=== PATIENT | female | born 1980 | race Caucasian/White ===

== ENCOUNTER 2018-03-13 06:25 | Emergency (ER) | payer BC ==
[~2018-03-13] VITALS: Ht 180.3 cm; Wt 85.0 kg
--- NOTE | 2018-03-13 06:37 | PD ---
HPI Chief Complaint: Left ankle pain Time Seen by Provider: 06:36 Travel History International Travel<30 days: No Contact w/Intl Traveler<30days: No Traveled to known affect area: No History of Present Illness HPI 37-year-old female presents via EMS for evaluation of left ankle injury. Prior to arrival the patient reports that [place] the [place] when she twisted her left ankle and fell. She now has left ankle and foot pain, throbbing, constant, worse when attempting to ambulate. Associated bruising soft tissue swelling. Denies any numbness or tingling. She has no other complaints at this time. [facility] Social History Alcohol Use: Yes Tobacco Use: No Substance Use: No Allergies-Medications (Allergen,Severity, Reaction): Coded Allergies: No Known Allergies (Unverified , 03/13/18) Reported Meds & Prescriptions Reported Meds & Active Scripts Active Hydrocodone-Acetaminophen 5-325 mg Tab 1 Tab PO Q6H PRN Review of Systems Except as stated in HPI: all other systems reviewed are Neg Physical Exam Narrative GENERAL: Well-developed well-nourished female no acute distress SKIN: Warm and dry. There is ecchymosis along the medial lateral aspect of left ankle and the dorsum of the left foot. HEAD: Atraumatic. Normocephalic. EYES: Pupils equal and round. No scleral icterus. No injection or drainage. ENT: No nasal bleeding or discharge. Mucous membranes pink and moist. NECK: Trachea midline. No JVD. CARDIOVASCULAR: Regular rate and rhythm. No murmur appreciated. RESPIRATORY: No accessory muscle use. Clear to auscultation. Breath sounds equal bilaterally. MUSCULOSKELETAL: Skin as noted above with associated tenderness to palpation the left ankle and foot. There is pain with dorsi and plantar flexion of left ankle. 2+ dorsalis pedis pulse. NEUROLOGICAL: Awake and alert. No obvious cranial nerve deficits. Motor grossly within normal limits. Normal speech. Data Data Last Documented VS Vital Signs Date Time Temp Pulse Resp B/P (MAP) Pulse Ox O2 Delivery O2 Flow Rate FiO2 03/13/18 09:02 108/68 (81) 03/13/18 07:10 97.7 94 16 Orders Orders Ankle, Complete ([id number]) (03/13/18 ) Foot, Complete ([id number]) (03/13/18 ) Knee, Complete (4vws) (03/13/18 ) Morphine Inj (Morphine Inj) (03/13/18 06:45) Ondansetron Odt (Zofran Odt) (03/13/18 06:45) Basic Metabolic Panel (Bmp) (03/13/18 07:47) Complete Blood Count With Diff (03/13/18 07:47) Ecg Monitoring (03/13/18 07:47) Sodium Chlor 0.9% 1000 Ml Inj (Ns 1000 M (03/13/18 07:47) Sodium Chloride 0.9% Flush (Ns Flush) (03/13/18 08:00) Chest, Single Ap (03/13/18 07:47) Splinting (03/13/18 ) Radiology Film Requests (03/13/18 ) Crutches (03/13/18 ) Ed Discharge Order (03/13/18 08:42) Oxycodone-Acetamin 10-325 Mg (Percocet 1 (03/13/18 09:00) Fiberglass Short Leg Splint Ad (03/13/18 ) Fiberglass Sugartong Sp Ad Sl (03/13/18 ) Labs Laboratory Tests Test 03/13/18 08:00 White Blood Count 5.1 TH/MM3 Red Blood Count 4.39 MIL/MM3 Hemoglobin 12.6 GM/DL Hematocrit 37.2 % Mean Corpuscular Volume 84.7 FL Mean Corpuscular Hemoglobin 28.7 PG Mean Corpuscular Hemoglobin Concent 33.9 % Red Cell Distribution Width 14.3 % Platelet Count 271 TH/MM3 Mean Platelet Volume 7.5 FL Neutrophils (%) (Auto) 70.5 % Lymphocytes (%) (Auto) 23.8 % Monocytes (%) (Auto) 5.2 % Eosinophils (%) (Auto) 0.2 % Basophils (%) (Auto) 0.3 % Neutrophils # (Auto) 3.6 TH/MM3 Lymphocytes # (Auto) 1.2 TH/MM3 Monocytes # (Auto) 0.3 TH/MM3 Eosinophils # (Auto) 0.0 TH/MM3 Basophils # (Auto) 0.0 TH/MM3 CBC Comment DIFF FINAL Differential Comment Blood Urea Nitrogen 7 MG/DL Creatinine 0.70 MG/DL Random Glucose 90 MG/DL Calcium Level 8.4 MG/DL Sodium Level 142 MEQ/L Potassium Level 4.0 MEQ/L Chloride Level 109 MEQ/L Carbon Dioxide Level 19.3 MEQ/L Anion Gap 14 MEQ/L Estimat Glomerular Filtration Rate 95 ML/MIN MDM Medical Decision Making Medical Screen Exam Complete: Yes Emergency Medical Condition: Yes Medical Record Reviewed: Yes Differential Diagnosis Ankle sprain, avulsion fracture, dislocation, contusion Narrative Course X-ray imaging of left ankle, foot and knee have been ordered. The patient be given morphine and Zofran. 0700: At the end of my shift the patient was signed out to the oncoming provider pending imaging results. Scripts Hydrocodone-Acetaminophen (Hydrocodone-Acetaminophen) 5-325 mg Tab 1 TAB PO Q6H Y for PAIN, #20 TAB 0 Refills Prov: Jaya Shah MD 03/13/18 Marcelo Ricci Mar 13, 2018 06:37
[2018-03-13] MEDS ORDERED: MORPHINE SULFATE 4 MG/ML INJ IV PUSH ONE (06:45)
[2018-03-13] MEDS ORDERED: ONDANSETRON ODT 4 MG TAB PO ONE (06:45)
[2018-03-13 07:10] VITALS: BP 109/63; PULSE 94; RESP 16; TEMP 97.7
--- NOTE | 2018-03-13 07:34 | RADRPT ---
EXAM DATE: 03/13/2018 7:02 AM EDT AGE/SEX: 37 years / Female INDICATIONS: [place] beach. CLINICAL DATA: This is the patient's initial encounter. Patient reports that signs and symptoms have been present for 1 day and indicates a pain score of 10/10. MEDICAL/SURGICAL HISTORY: None. None. COMPARISON: No prior [place] exams available for comparison. FINDINGS: Bony structures are intact and in normal alignment. Joints are intact without dislocation or signifi cant arthropathy. Osseous density is normal. Soft tissues are unremarkable. No radiopaque foreign bodies seen. CONCLUSION: Negative examination Electronically signed by: Booker Pressley MD 03/13/2018 7:33 AM EDT
--- NOTE | 2018-03-13 07:34 | RADRPT ---
EXAM DATE: 03/13/2018 7:05 AM EDT AGE/SEX: 37 years / Female INDICATIONS: Pain in left leg from fall. CLINICAL DATA: This is the patient's initial encounter. Patient reports that signs and symptoms have been present for 1 day and indicates a pain score of 8/10. MEDICAL/SURGICAL HISTORY: None. None. COMPARISON: No prior [place] exams available for comparison. FINDINGS: There is lateral predominance soft tissue swelling. A nondisplaced avulsion fracture off the tip of t he lateral malleolus is present, potentially acute. I believe there is an old, healed spiral fracture more proximally of the distal fibula. The distal tibia appears normal. CONCLUSION: 1. Nondisplaced avulsion fracture of the tip of the lateral malleolus. 2. Probably an old spiral fracture of the distal fibula. This appears healed. Electronically signed by: Booker Wood MD 03/13/2018 7:32 AM EDT
--- NOTE | 2018-03-13 07:36 | RADRPT ---
EXAM DATE: 03/13/2018 7:04 AM EDT AGE/SEX: 37 years / Female INDICATIONS: Pain in left foot, from fall. CLINICAL DATA: This is the patient's initial encounter. Patient reports that signs and symptoms have been present for 1 day and indicates a pain score of 8/10. MEDICAL/SURGICAL HISTORY: None. None. COMPARISON: No prior [place] exams available for comparison. FINDINGS: Comminuted oblique fractures are seen of the fourth and fifth metatarsals. Fourth metatarsal fracture is in the distal shaft region, mildly comminuted and has slight medial displacement. Fifth metatarsa l fracture is of the distal shaft/neck region, moderately comminuted but minimally displaced. Articul ar surfaces appear intact. There are no subluxations. There appears to be an old, healed mid shaft fracture of the third metatarsal. CONCLUSION: Comminuted minimally to mildly displaced acute fractures distally of the fourth and fifth metatarsals as above. Electronically signed by: Booker Wood MD 03/13/2018 7:35 AM EDT
[2018-03-13] MEDS ORDERED: SODIUM CHLOR 0.9% 1000 ML INJ 1,000 ML IV SCH (07:47)
[2018-03-13] MEDS ORDERED: SODIUM CHLORIDE 0.9% FLUSH 10 ML FLUSH IV FLUSH PRN (08:00)
[2018-03-13] MEDS ORDERED: HYDR-3516 PO ×2 (08:06→08:07)
[2018-03-13 08:08] LABS: AUTOMATED NEUTROPHIL # 3.6 TH/MM3 (1.8-7.7); BASOPHIL % 0.3 % (0.0-2.0); EOSINOPHIL % 0.2 % (0.0-4.0); HEMATOCRIT 37.2 % (35.0-46.0); HEMOGLOBIN 12.6 GM/DL (11.6-15.3); LYMPH % 23.8 % (9.0-44.0); LYMPHOCYTE # 1.2 TH/MM3 (1.0-4.8); MEAN CELL VOLUME 84.7 FL (80.0-100.0); MEAN CORPUSCULAR HEMOGLOBIN 28.7 PG (27.0-34.0); MEAN CORPUSCULAR HGB CONC 33.9 % (32.0-36.0); MEAN PLATELET VOLUME 7.5 FL (7.0-11.0); MONO % 5.2 % (0.0-8.0); MONOCYTE # 0.3 TH/MM3 (0-0.9); NEUT % 70.5 % (16.0-70.0); PLATELET COUNT 271 TH/MM3 (150-450); RED BLOOD COUNT 4.39 MIL/MM3 (4.00-5.30); RED CELL DISTRIBUTION WIDTH 14.3 % (11.6-17.2); WHITE BLOOD COUNT 5.1 TH/MM3 (4.0-11.0)
--- NOTE | 2018-03-13 08:10 | RADRPT ---
EXAM DATE: 03/13/2018 8:05 AM EDT AGE/SEX: 37 years / Female INDICATIONS: Short of breath after fall. CLINICAL DATA: This is the patient's initial encounter. Patient reports that signs and symptoms have been present for 1 day and indicates a pain score of 0/10. MEDICAL/SURGICAL HISTORY: None. None. COMPARISON: No prior [place] exams available for comparison. FINDINGS: Portable AP view of the chest demonstrates a normal-sized cardiac silhouette. The lungs demonstrate n o definite effusion, consolidation, or pneumothorax. The bones and soft tissues demonstrate no acute finding. There are surgical clips overlying the GE junction region. CONCLUSION: No acute cardiopulmonary abnormality is identified. Electronically signed by: Booker Esparza MD 03/13/2018 8:08 AM EDT
[2018-03-13 08:27] LABS: BICARBONATE 19.3 MEQ/L (21.0-32.0); CALCIUM 8.4 MG/DL (8.5-10.1); CREATININE 0.7 MG/DL (0.50-1.00)
--- NOTE | 2018-03-13 08:42 | PD ---
Physical Exam Date Seen by Provider: Mar 13, 2018 Time Seen by Provider: 08:36 Narrative 37-year-old female patient with injury to the left ankle and foot status post "stepping in a hole" last evening". Patient previously seen by Marcelo Ricci PA-C, and turned over to me at change of shift. X-rays were pending at that time. Please see his history and physical. Data Data Last Documented VS Vital Signs Date Time Temp Pulse Resp B/P (MAP) Pulse Ox O2 Delivery O2 Flow Rate FiO2 03/13/18 07:10 97.7 94 16 109/63 (78) Orders Orders Ankle, Complete ([id number]) (03/13/18 ) Foot, Complete ([id number]) (03/13/18 ) Knee, Complete (4vws) (03/13/18 ) Morphine Inj (Morphine Inj) (03/13/18 06:45) Ondansetron Odt (Zofran Odt) (03/13/18 06:45) Basic Metabolic Panel (Bmp) (03/13/18 07:47) Complete Blood Count With Diff (03/13/18 07:47) Ecg Monitoring (03/13/18 07:47) Sodium Chlor 0.9% 1000 Ml Inj (Ns 1000 M (03/13/18 07:47) Sodium Chloride 0.9% Flush (Ns Flush) (03/13/18 08:00) Chest, Single Ap (03/13/18 07:47) Splinting (03/13/18 ) Radiology Film Requests (03/13/18 ) Crutches (03/13/18 ) Labs Laboratory Tests Test 03/13/18 08:00 White Blood Count 5.1 TH/MM3 Red Blood Count 4.39 MIL/MM3 Hemoglobin 12.6 GM/DL Hematocrit 37.2 % Mean Corpuscular Volume 84.7 FL Mean Corpuscular Hemoglobin 28.7 PG Mean Corpuscular Hemoglobin Concent 33.9 % Red Cell Distribution Width 14.3 % Platelet Count 271 TH/MM3 Mean Platelet Volume 7.5 FL Neutrophils (%) (Auto) 70.5 % Lymphocytes (%) (Auto) 23.8 % Monocytes (%) (Auto) 5.2 % Eosinophils (%) (Auto) 0.2 % Basophils (%) (Auto) 0.3 % Neutrophils # (Auto) 3.6 TH/MM3 Lymphocytes # (Auto) 1.2 TH/MM3 Monocytes # (Auto) 0.3 TH/MM3 Eosinophils # (Auto) 0.0 TH/MM3 Basophils # (Auto) 0.0 TH/MM3 CBC Comment DIFF FINAL Differential Comment Blood Urea Nitrogen 7 MG/DL Creatinine 0.70 MG/DL Random Glucose 90 MG/DL Calcium Level 8.4 MG/DL Sodium Level 142 MEQ/L Potassium Level 4.0 MEQ/L Chloride Level 109 MEQ/L Carbon Dioxide Level 19.3 MEQ/L Anion Gap 14 MEQ/L Estimat Glomerular Filtration Rate 95 ML/MIN [facility] Medical Record Reviewed: Yes Supervised Visit with BINDU: Yes Differential Diagnosis Left ankle sprain. Left foot sprain. Fracture. Narrative Course X-rays of the knee are within normal limits. X-rays of the left ankle shows an avulsion fracture of the distal lateral malleolus. X-rays of the left foot show comminuted nondisplaced fractures of the fourth and fifth metatarsals. Call was placed to the corncob pipes assembler on-call, Dr. Lozano, and x-rays were reviewed. Dr. Lozano felt the patient would do well on outpatient basis with posterior lower leg splint and crutches with nonweightbearing. Patient should follow-up with her corncob pipes assembler or orthopedist upon returning to [place] after her week long vacation here. Patient is given Lortab 5/325 1 every 6 hours as needed pain #20. Patient should ice the area frequently as well as keep it elevated as much as possible. Patient is to use crutches with nonweightbearing until cleared by orthopedist or corncob pipes assembler at home. Copies of the patient's x-rays are given. Patient can return with worsening symptoms during her time here in [place] as needed. Diagnosis Primary Impression: Foot fracture, left Qualified Codes: S92.902A - Unspecified fracture of left foot, initial encounter for closed fracture Additional Impression: Closed fracture of left distal fibula Qualified Codes: S82.832A - Other fracture of upper and lower end of left fibula, initial encounter for closed fracture Referrals: [facility] Patient Instructions: Crutch Instructions (ED), General Instructions, Splint Care (ED) Additional Instruction: X-rays of the knee are within normal limits. X-rays of the left ankle shows an avulsion fracture of the distal lateral malleolus. X-rays of the left foot show comminuted nondisplaced fractures of the fourth and fifth metatarsals. Call was placed to the corncob pipes assembler on-call, Dr. Lozano, and x-rays were reviewed. Dr. Lozano felt the patient would do well on outpatient basis with posterior lower leg splint and crutches with nonweightbearing. Patient should follow-up with her corncob pipes assembler or orthopedist upon returning to [place] after her week long vacation here. Patient is given Lortab 5/325 1 every 6 hours as needed pain #20. Patient should ice the area frequently as well as keep it elevated as much as possible. Patient is to use crutches with nonweightbearing until cleared by orthopedist or corncob pipes assembler at home. Copies of the patient's x-rays are given. Patient can return with worsening symptoms during her time here in [place] as needed. Med/Other Pt SpecificInfo: Prescription(s) given Scripts Hydrocodone-Acetaminophen (Hydrocodone-Acetaminophen) 5-325 mg Tab 1 TAB PO Q6H Y for PAIN, #20 TAB 0 Refills Prov: Jaya Shah MD 03/13/18 Disposition: 01 DISCHARGE HOME Condition: Stable aJbari Morejon Mar 13, 2018 08:42
[2018-03-13] MEDS ORDERED: oxyCODONE/ACETAMINOPHEN 10 MG/325 MG TAB PO ONE (09:00)
[2018-03-13 09:02] VITALS: BP 108/68
== END 2018-03-13 09:57 | disposition home or self-care (01) ==
LOC: NEPD 06:25
DX: S82.62XA Displaced fracture of lateral malleolus of left fibula, initial encounter for closed fracture (principal); S92.345A Nondisplaced fracture of fourth metatarsal bone, left foot, initial encounter for closed fracture; S92.355A Nondisplaced fracture of fifth metatarsal bone, left foot, initial encounter for closed fracture; W19.XXXA Unspecified fall, initial encounter; Y93.01 Activity, walking, marching and hiking; Y92.832 Beach as the place of occurrence of the external cause
CPT/HCPCS: 29515; 71045; 73564; 73610; 73630; 80048; 85025; 96361; 96374; 99284; E0113; J2270; J7030